=== PATIENT | male | born 2000 | race Caucasian/White ===

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

== ENCOUNTER 2022-10-23 09:19 | Emergency (ER) | payer OTHER, SELFPAY ==
[2022-10-23 09:27] VITALS: BP 126/61; PULSE 70; RESP 16; TEMP 36.9; O2SAT 98
--- NOTE | 2022-10-23 09:41 | ED.DENTAL ---
HPI - Dental/Oral General Chief complaint: Dental/Oral Stated complaint: Jaw Pain/Swelling Source: patient, family and RN notes reviewed History of Present Illness HPI Narrative: 22-year-old male presents to urgent care with complaints of left lower jaw pain and swelling. Patient states he had his braces tightened on Monday and pain started then but the pain has gotten worse. Patient denies any fevers but reports chills. Patient reports increased pain with palpation to his lower jaw as well as opening his mouth. Denies any vomiting or difficulty breathing. Patient has been taking Tylenol and ibuprofen. Patient states he is calling his dentist tomorrow. Some parts of this dictation were generated by voice recognition software and may contain typographical and/or grammatical inaccuracies. Related Data Home Medications Medication Instructions Recorded Confirmed bupropion HCl 150 mg 24 hr tablet, 150 mg PO DAILY 10/23/22 10/23/22 extended release escitalopram oxalate 20 mg tablet 20 mg PO DAILY 10/23/22 10/23/22 Allergies Allergy/AdvReac Type Severity Reaction Status Date / Time No Known Allergies Allergy Verified 10/23/22 09:44 Review of Systems Review of Systems: CONSTITUTIONAL: Denies feve, or sweats. EYES: Denies visual changes, redness, or discharge. ENT: Denies otalgia and sore throat CARDIOVASCULAR: Denies chest pain, palpitations, or edema. RESPIRATORY: Denies cough or dyspnea. GASTROINTESTINAL: Denies abdominal pain, nausea, vomiting, or diarrhea. GENITOURINARY: Denies dysuria or hematuria. SKIN: Denies rash or itching. MUSCULOSKELETAL: Denies back pain, joint pain, or myalgia. NEUROLOGIC: Denies headache, numbness, or weakness. MOUTH: left lower jaw and dental pain and swelling [facility] Past Medical History Medical History Ruptured tympanic membrane Family History Family History (Updated 03/06/21 @ 14:13 by Licha King, EMMA) Other No acute medical problems Social History Social History (Updated 03/06/21 @ 14:14 by Licha King, EMMA) Smoking status: Former smoker Tobacco type: e-cigarettes/vaping Alcohol intake: current Comments At the time of my signature, I reviewed and agree with the nursing past medical, surgical, social, and family history. There is no relevant family history pertinent to the patient complaint. Exam Narrative: GENERAL: This is a well-nourished, well-developed patient, in no apparent distress. HEAD: normocephalic, atraumatic. EYES: PERRL. Sclera clear/white. Vision is grossly intact. MOUTH: left lower gum swelling and left lower jaw tenderness and swelling EARS: External ears normal, auditory canals clear and without drainage, TMs normal without perforation. Hearing grossly intact. NOSE: External nose normal with no obvious nasal discharge, nares without redness, no rhinorrhea. THROAT: Mucous membranes moist, posterior pharynx clear. NECK: Neck supple, non-tender without lymphadenopathy, masses or thyromegaly. CARDIOVASCULAR: Regular rate and rhythm without murmurs, gallops, or rubs. RESPIRATORY: Clear to auscultation. Breath sounds equal bilaterally. No wheezes, rales, or rhonchi. GASTROINTESTINAL: Abdomen soft, non-tender, nondistended. Bowel sounds are active. No hepato-splenomegaly, or palpable masses. No guarding. SKIN: warm, intact with no suspicious lesions or rash, good texture and turgor. NEURO: awake, alert, and oriented to person, place and time. There were no obvious focal neurologic abnormalities. Course Course Level of Care: [facility] Visit Vital Signs Vital signs: Vital Signs Temperature 98.5 F 10/23/22 09:27 Pulse Rate 70 10/23/22 09:27 Respiratory Rate 16 10/23/22 09:27 Blood Pressure 126/61 10/23/22 09:27 Pulse Oximetry 98 10/23/22 09:27 Oxygen Delivery Room Air 10/23/22 09:27 Temperature 98.5 F 10/23/22 09:27 Pulse Rate 70 10/23/22 09:27 R
== END 2022-10-23 09:50 | disposition home or self-care (01) ==
PROVIDERS: Emergency Provider Nurse Practitioner Family; PCP Pediatrics
DX: K04.7 Periapical abscess without sinus (principal); Z87.891 Personal history of nicotine dependence
CPT/HCPCS: 99213; G0463

== ENCOUNTER 2023-03-16 08:17 | Emergency (ER) | payer OTHER, SELFPAY ==
--- NOTE | 2023-03-16 08:22 | ED.GENADULT ---
HPI - General Adult General Chief complaint: Ear Stated complaint: Ear Pain Time Seen by Provider: 03/16/23 08:28 Source: patient, RN notes reviewed and old records reviewed Mode of arrival: ambulatory Limitations: no limitations History of Present Illness HPI narrative: 23-year-old male presents to the [facility] with complaints of ear pain, swelling and drainage. 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 Patient reports that he was told to either wear ear plugs but states that he tries to be careful not to get any water in his ears or put his head under water. Pain started monday, 2 days ago, after swimming no Treatment prior to arrival Onset (ago): day(s) (2) Related Data Home Medications Medication Instructions Recorded Confirmed bupropion HCl 150 mg 24 hr tablet, 150 mg PO DAILY 10/23/22 03/16/23 extended release escitalopram oxalate 20 mg tablet 20 mg PO DAILY 10/23/22 03/16/23 viloxazine 200 mg capsule,extended 400 mg PO DAILY 03/16/23 03/16/23 release 24 hr (Q[facility]bree) Allergies Allergy/AdvReac Type Severity Reaction Status Date / Time No Known Allergies Allergy Verified 03/16/23 08:28 Review of Systems Review of Systems: All systems reviewed & are unremarkable except as noted in HPI and below Constitutional: Constitutional: Reports no additional constitutional complaints Eyes: Eyes: Reports no additional eye complaints ENT: Reports as per HPI, Reports ear discharge (left) and Reports otalgia (left ear) Cardiovascular: Cardiovascular: Reports no additional cardiovascular complaints, Denies chest pain and Denies dyspnea Respiratory: Respiratory: Reports no additional respiratory complaints, Denies chest congestion, Denies cough and Denies dyspnea Gastrointestinal: Gastrointestinal: Reports no additional gastrointestinal complaints, Denies abdominal pain, Denies nausea and Denies vomiting Musculoskeletal: Musculoskeletal: Reports no additional musculoskeletal complaints Integumentary/Breasts: Skin/Breast: Reports system reviewed and no additional complaints, except as docu Neurologic: Reports system reviewed and no additional complaints, except as documented Psychiatric: Psychiatric: Reports no additional psychiatric complaints Allergic/Immunologic: Allergic/Immunologic: Reports no additional allergic/immunologic complaints PMFSH Past Medical History Medical History Ruptured tympanic membrane Family History Family History Other No acute medical problems Social History Social History Smoking status: Former smoker Tobacco type: e-cigarettes/vaping Alcohol intake: current Comments At the time of my signature, I reviewed and agree with the nursing past medical, surgical, social, and family history. There is no relevant family history pertinent to the patient complaint. Exam Const: General: cooperative, healthy appearing, comfortable, no acute distress, well developed, alert and well nourished Nutritional Appearance: well nourished Orientation/consciousness: patient oriented x3 Limitations: no limitations HENMT: Head: normal to inspection Ears: hearing grossly normal bilaterally, external ears normal, left TM abnormal (Unable to visualize due to the swelling and discharge), mastoids normal, no periauricular adenopathy and Abnormal EAC present erythema on the left, edema on the left, EAC tenderness on the left and otic discharge purulent Face/Nose/Sinus: Normal external nose present, Normal nares present, Normal nasal mucous membranes and turbinates present and normal facial exam Face and sinus: normal facial exam Mouth: Yes Normal oral and palatal mucosa present, Yes lip normal and Yes moist mucous membranes Throat: posterior oropharynx normal, uvula midline and no uvular edema Eyes: General:
[2023-03-16 08:28] VITALS: BP 140/80; PULSE 72; RESP 16; TEMP 36.8; O2SAT 100
[2023-03-16 08:31] VITALS: BP 140/80; PULSE 72; RESP 16; TEMP 36.8; O2SAT 100
== END 2023-03-16 08:52 | disposition home or self-care (01) ==
PROVIDERS: Emergency Provider Nurse Practitioner; PCP Pediatrics
DX: H60.332 Swimmer's ear, left ear (principal); Z87.891 Personal history of nicotine dependence
CPT/HCPCS: 99213; G0463